=== PATIENT | male | born 1965 | race Caucasian/White ===

== ENCOUNTER 2021-12-29 13:00 | Outpatient (RCR) | payer OTHER, SELFPAY ==
--- NOTE | 2021-12-22 16:06 | PTOPEVAL ---
Thank you for referring XIOMARA NELSON to [facility] [place][Note 2].? The patient is scheduled to be seen for therapy? __2__x/week for 10 visits. Please review, sign, date and return this plan of care TRICIA. I agree with and certify that the following plan of care is medically necessary. Referring Physician Date Admitting Provider: Attending Provider: Elisabeth Pugh, CAROL Referring Provider: *PT Outpatient Evaluation Start: 12/22/21 14:55 Freq: Status: Active Protocol: Document 12/22/21 14:55 [facility] (Rec: 12/22/21 16:05 [facility] [id number]) Therapy Assessment Status Assessment Status Assessment Status Evaluation Evaluation Information Problem Diagnosis primary glioblastoma of brain Onset 11/17/21 Subjective Information Pt. reports he started Query Text:As Reported By Patient/ noticing memory symptoms and Family difficulty with his leg in early november. He underwent MRI the same day and revealed glioblastoma. He underwent surgery on for a biopsy on . The pt. girlfriend is present and does most communicating. She states that the tumor itself could not be removed. He is undergoing radiation currently to attempt to shrink the tumor. Prior to development of his tumor he did suffer a stroke affecting the left side , but he did not have any major symptoms. He was able to walk without an AD and his girlfriend recalls no described deviation. 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 He states that his goal is to return to being a tire trucker. Prior Level of Function Activity Level (Last 3 Months) Occupation tire trucker Hand Dominance Right Activity of Daily Living Ability Independent Indoor/Home Mobility Independent Community Mobility Independent Stairs Ability Independent Functional Cognition (Planning, Shopping Independent , Taking Medications) Cooking Yes Cleaning Yes Laundry Yes Shopping
--- NOTE | 2021-12-22 16:55 | OTOPEVAL ---
Thank you for referring XIOMARA NELSON to [facility] [place].? The patient is scheduled to be seen for therapy? ____x/week for ___ weeks. Please review, sign, date and return this plan of care TRICIA. I agree with and certify that the following plan of care is medically necessary. Referring Physician Date Admitting Provider: Attending Provider: Elisabeth Pugh, CAROL Referring Provider: *OT Outpatient Evaluation Start: 12/22/21 16:02 Freq: Status: Active Protocol: Document 12/22/21 16:02 [facility] (Rec: 12/22/21 16:55 [facility] [id number]) Therapy Assessment Status Assessment Status Assessment Status Evaluation Evaluation Information Problem Diagnosis Decreased fine motor coordination & strength Onset 11/17/21 Cause primary glioblastoma of brain Subjective Information Patient had a CVA ~4 years Query Text:As Reported By Patient/ that affected his L side Family however his fiance reports that patient fully recovered from the CVA and returned to work. According to patient's fiance towards the beginning of November she started noticing some cognitive changes as well as decreased balance. They did testing and diagnosed him with primary glioblastoma of brain. Patient just started radiation about a week ago and goes 5 days/week for 6 weeks. Patient also is taking a chemo pill every night. 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 Patient's fiance is currently assisting him with all dressing, bathing and toileting. Patient is able to feed himself and brush his teeth. Patient and his fiance report primary goal of increasing strength and endurance so that as the tumor shrinks he does not loose any more independence or skills. Diagnostic Tests MRI For This Problem Yes Prior Level of Function Activity Level (Last 3 Months) Occupation trucking manager Hand Dominance Right
--- NOTE | 2021-12-29 15:50 | STOPEVAL ---
Thank you for referring XIOMARA NELSON to [facility].? The patient is scheduled to be seen for therapy? 1x/week for 10 sessions. Please review, sign, date and return this plan of care TRICIA. I agree with and certify that the following plan of care is medically necessary. Referring Physician Date Admitting Provider: Attending Provider: Elisabeth Pugh, CAROL Referring Provider: ROBBY Outpatient Evaluation Start: 12/29/21 15:05 Freq: Status: Active Protocol: Document 12/29/21 14:05 [facility] (Rec: 12/29/21 15:41 [facility] [id number]) Therapy Assessment Status Assessment Status Assessment Status Evaluation Outpatient Past Medical History Past Medical History Source of Past Medical History Patient,Family/Significant Other Neurological History Hx Other Neurological Disorders Yes: primary glioblastoma of brain C71.9 Cardiovascular History Hx Cardiac Disorders No Significant History Respiratory History Hx Respiratory Disorders No Significant History Gastrointestinal History Hx Gastrointestinal Disorders No Significant History Genitourinary History Hx Genitourinary Disorders No Significant History Musculoskeletal History Hx Musculoskeletal Disorders No Significant History Hematological History Hx Hematological Disorders No Significant History Endocrine History Hx Endocrine Disorders No Significant History HEENT History Hx HEENT Disorders No Significant History Integumentary History Hx Skin Disorders No Significant History Reproductive History Hx Reproductive Disorders No Significant History Psychosocial History Hx Psychiatric Disorders No Significant History Pain History History of Any Previous or Ongoing No Significant History Instance of Pain Anesthesia History Hx Anesthesia Reactions No Significant History Other History Hx Cancer Yes: primary glioblastoma of brain Hx Chemotherapy Yes: chemo medication Hx Radiation Therapy Yes: undergoing radiation 5x per week Evaluation Information Problem Diagnosis Decreased fine motor coordination & strength Onset 11/17/21 Cause primary glioblastoma of brain Subjective Information Patient had a CVA ~4 years Query Text:As Reported By Patient/ that affected his L side Family however his fiance reports that patient fully recovered from the CVA and returned to work. According to patient's fiance towards the beginning of November she star
--- NOTE | 2022-01-26 14:46 | PTOPEVAL ---
Thank you for referring XIOMARA NELSON to [facility].? The patient is scheduled to be seen for therapy? ____x/week for ___ weeks. Please review, sign, date and return this plan of care TRICIA. I agree with and certify that the following plan of care is medically necessary. Referring Physician Date Admitting Provider: Attending Provider: Elisabeth Pugh, CAROL Referring Provider: *PT Outpatient Evaluation Start: 12/22/21 14:55 Freq: Status: Active Protocol: Document 01/26/22 13:35 [facility] (Rec: 01/26/22 14:45 [facility] [id number]) Therapy Assessment Status Assessment Status Assessment Status Re-evaluation Outpatient Past Medical History Past Medical History Source of Past Medical History Patient,Family/Significant Other Neurological History Hx Other Neurological Disorders Yes: primary glioblastoma of brain C71.9 Cardiovascular History Hx Cardiac Disorders No Significant History Respiratory History Hx Respiratory Disorders No Significant History Gastrointestinal History Hx Gastrointestinal Disorders No Significant History Genitourinary History Hx Genitourinary Disorders No Significant History Musculoskeletal History Hx Musculoskeletal Disorders No Significant History Hematological History Hx Hematological Disorders No Significant History Endocrine History Hx Endocrine Disorders No Significant History HEENT History Hx HEENT Disorders No Significant History Integumentary History Hx Skin Disorders No Significant History Reproductive History Hx Reproductive Disorders No Significant History Psychosocial History Hx Psychiatric Disorders No Significant History Pain History History of Any Previous or Ongoing No Significant History Instance of Pain Anesthesia History Hx Anesthesia Reactions No Significant History Other History Hx Cancer Yes: primary glioblastoma of brain Hx Chemotherapy Yes: chemo medication Hx Radiation Therapy Yes: undergoing radiation 5x per week Evaluation Information Problem Diagnosis Decreased fine motor coordination & strength Onset 11/17/21 Subjective Information patient reports he feels good Query Text:As Reported By Patient/ this date. he reports he has Family gotten rid of all AD for ambulation. he reports he has no pain, and has had no falls. Pain Assessment Timing of Pain Assessment Timing of Pain Assessment Assessment Self Report Self Report Pain Level 0 Pain Score Pain Score 0: Self Report Palpation Assessment P
--- NOTE | 2022-02-04 11:47 | PCSTNOTE ---
Patient called & cancelled scheduled appointment this date due to being in the hospital currently.
--- NOTE | 2022-03-01 11:09 | PCSTNOTE ---
Admitting Provider: Attending Provider: Elisabeth Pugh, CAROL Patient:XIOMARA NELSON Date of :1965 SPEECH THERAPY DISCHARGE Patient has not returned for any further treatments since 01/21/2022, therefore he will be discharged at this time. Patient?s initial visit was on 12/29/2021 and he had a total of 3 visits. The goals have been partially met at this time. Patient met the goal for comprehension of yes/no questions and showed progression in remote memory, divergent naming, mathematical tasks, and tolerance of least restrictive diet with minimal to no overt signs or symptoms of aspiration. The patient was admitted to the hospital and has not returned for treatment therefore he will be discharged at this time. Thank you for referring this patient to [facility]. Please review, sign, date and return this discharge summary TRICIA. I have been updated about the patient's current status and I agree with discharge from the above service at this time. Referring Physician Date
--- NOTE | 2022-04-26 12:58 | PCPTNOTE ---
Mr. Rosales attended a total of 11 treatment sessions. He has failed to return to the clinic at this time. Refer to pt. last daily note for discharge status.
== END 2022-02-02 11:47 | disposition home or self-care (01) ==
LOC: CHSST 13:00
PROVIDERS: PCP Physician Assistant; Visit Provider Physician Assistant
DX: C71.9 Malignant neoplasm of brain, unspecified (principal); Z86.73 Personal history of transient ischemic attack (TIA), and cerebral infarction without residual deficits
CPT/HCPCS: 92507; 92526; 92610; 96125; 97110; 97112; 97162; 97164; 97165; 97530